=== PATIENT | female | born 1975 | race Caucasian/White ===

== ENCOUNTER 2022-09-27 15:45 | Emergency (ER) | payer BC ==
[~2022-09-27] VITALS: Ht 162.6 cm; Wt 72.6 kg
[2022-09-27 15:58] VITALS: BP 144/98
--- NOTE | 2022-09-27 16:39 | NUR ---
PT C/O CP, SOB, RT NECK PAIN SINCE 3AM WORSENING THROUGHOUT THE DAY. TOOK [facility]. DR KIDD AT BEDSIDE, MSE COMPLETED. HX: HTN MEDS:METOPROLOL 25MG
[2022-09-27] MEDS ORDERED: KETOROLAC 30 MG/ML VIAL IM ONE (16:50)
[2022-09-27 17:00] LABS: BASOPHILS # (AUTO) 0.1 K/uL (0.00-0.22); BASOPHILS % (AUTO) 0.8 % (0.0-2.0); EOSINOPHILS # (AUTO) 0.1 K/uL (0-0.4); EOSINOPHILS % (AUTO) 1.5 % (0.0-4.0); HEMATOCRIT 40.9 % (36-48); HEMOGLOBIN 13.7 g/dL (12.0-16.0); LYMPHOCYTES # (AUTO) 2.2 K/uL (2.5-16.5); LYMPHOCYTES % (AUTO) 25.9 % (20.5-51.1); MEAN CORPUSCULAR HEMOGLOBIN 31 pg (27-31); MEAN CORPUSCULAR HGB CONC 34 g/dL (33-37); MEAN CORPUSCULAR VOLUME 91.3 fL (80-94); MONOCYTES # (AUTO) 0.7 K/uL (0.8-1.0); MONOCYTES % (AUTO) 8.3 % (1.7-9.3); NEUTROPHILS # (AUTO) 5.5 K/uL (1.8-7.7); NEUTROPHILS % (AUTO) 63.5 % (42.2-75.2); PLATELET COUNT (AUTO) 301 K/uL (140-450); RED BLOOD CELL COUNT(AUTO) 4.48 MIL/uL (4.20-5.40); RED CELL DISTRIBUTION WIDTH 13.9 % (11.6-13.7); WHITE BLOOD COUNT (AUTO) 8.6 K/uL (4.8-10.8)
--- NOTE | 2022-09-27 17:00 | NUR ---
RADIOLOGY AT BEDSIDE
[2022-09-27 17:23] LABS: ALBUMIN 3.5 g/dL (3.4-5.0); ANION GAP 11.6 (8-16); ASPARTATE AMINOTRANSFERASE 26 U/L (15-37); CARBON DIOXIDE 26.8 mmol/L (21-32); CHLORIDE 103 mmol/L (98-107); GFR ARICAN-AMERICAN 76 mL/min (>90); GLUCOSE 96 mg/dL (74-106); LIPASE 73 U/L (73-393); POTASSIUM 3.4 mmol/L (3.5-5.1); SODIUM SERUM 138 mmol/L (136-145); TOTAL BILIRUBIN 0.4 mg/dL (0.0-1.0); UREA NITROGEN, BLOOD 23 mg/dL (7-18)
[2022-09-27 18:15] VITALS: BP 117/80
--- NOTE | 2022-09-27 18:15 | NUR ---
Patient discharged with v/s stable. Written and verbal after care instructions given and explained. Patient verbalized understanding. Ambulatory with steady gait. All questions addressed prior to discharge. Advised to follow up with PMD.
== END 2022-09-27 18:15 | disposition home or self-care (01) ==
LOC: MED 15:45
DX: R07.9 Chest pain, unspecified (principal); M54.2 Cervicalgia; I10 Essential (primary) hypertension; Z88.8 Allergy status to other drugs, medicaments and biological substances; Z79.899 Other long term (current) drug therapy
CPT/HCPCS: 36415; 71045; 80053; 83690; 84484; 85025; 93005; 96372; 99285; J1885; Q0092